=== PATIENT | female | born 2000 | race Hispanic/Latino ===

== ENCOUNTER 2024-06-28 11:46 | Emergency (ER) | payer SELFPAY ==
[2024-06-28 11:52] VITALS: BP 115/77
[2024-06-28 12:36] LABS: Urine Albumin Negative (Neg - Trace); Urine Bilirubin Negative (Negative); Urine Character Slightly Cloudy (Clear); Urine Color Yellow; Urine Glucose Negative (Negative); Urine Ketone Negative (Negative); Urine Leukocyte Negative (Negative); Urine Nitrite Negative (Negative); Urine Occult Blood 1+ (Negative); Urine Specific Gravity 1.015 (<1.030); Urine Urobilinogen Negative (Neg - 1+); Urine pH 6.5 (5.0-9.0)
[2024-06-28 12:45] LABS: HCG, Serum Qualitative Screen Negative
--- NOTE | 2024-06-28 12:47 | ED.GENMED ---
History of Present Illness
<Monique Quintana PA-C - Last Filed: 06/28/24 17:14>
General
Chief Complaint: Abdominal Symptoms
Source: patient and family (Mom at bedside translating)
Exam Limitations: none
Time Seen by Provider: 06/28/24 12:20
Nursing documentation reviewed up to this point in time: agreed with
History of Present Illness
History of Present Illness:
Patient is a 24-year-old female presenting to the emergency department with mom for evaluation of right flank pain. Patient states symptoms started on Thursday evening and seem to come and go in severity. Patient reports pain across her entire low
back although worse on the right side with some radiation into her right pelvis and down her right leg. Patient reports a few episodes of vomiting and chills with severe pain. Patient does report some dysuria and seeing 'small brown stones' in her
urine yesterday with hematuria. Patient was seen in urgent care earlier today and sent to the emergency department for further evaluation.
Patient has not eaten much over the past 2 days but does report feeling hungry. Patient denies any fevers.
Patient just finished her menstrual period on Thursday.
Patient has a history of 2 sections and liposuction last year.
Review of Systems
<Monique Quintana PA-C - Last Filed: 06/28/24 17:14>
Review of Systems
Allergies reviewed?: Yes
All Other Systems: ROS reviewed and negative except as documented in HPI and ROS
Phy Exam
<Monique Quintana PA-C - Last Filed: 06/28/24 17:14>
Physical Exam
Physical Exam:
Vitals: Patient's vital signs are stable
General: Patient is well appearing, no acute distress. Nontoxic-appearing
Skin: Warm and dry, no rashes or lesions
Head: Normocephalic, atraumatic
Eyes: Sclera nonicteric. EOMs intact. No nystagmus.
Throat: Protecting airway
Neck: Normal ROM, no cervical spine tenderness, no meningismus
Cardiac: Regular rate and rhythm, no murmurs.
Pulm: Normal respiratory effort, no wheezes, rales, rhonchi heard on exam.
Abdomen: Abdomen soft. Mild tenderness in lower abdomen without rebound tenderness or guarding. Mild right CVA tenderness. No overlying rash or bruising of bilateral
Extremities: No evidence of cyanosis or edema. Great distal pulses
Neuro: Grossly intact.
Psychiatric: Normal affect..
Course
<Monique Quintana PA-C - Last Filed: 06/28/24 17:14>
Orders/Labs/Results
Orders:
Orders
06/28/24 12:20
Test Result ONCE
06/28/24 12:21
Complete Blood Count/With Diff Urgent
Comprehensive Metabolic Panel Urgent
HCG, Serum Qualitative Screen Urgent
Urinalysis Reflex To Culture Urgent
Date Specimen was Collected: 06/28/24
Time Specimen was Collected: 12:20
Urine Microscopic Reflex Cult Urgent
Urine Culture Urgent
EMRE Source: U
Specimen Description:
Date Specimen was Collected: 06/28/24
Time Specimen was Collected: 12:20
06/28/24 12:43
0.9% Sodium Chloride 1000 ml [Nss] 1,000 ml IV BOLUS
Ketorolac [Toradol] 15 mg IV NOW STA
Ondansetron Injectable [Zofran] 4 mg IV NOW STA
06/28/24 13:04
CT Abd/pel Without Iv Or Oral Urgent
Comment:
Reason For Exam: right flank pain
Abnormal Lab Results
06/28/24
12:21
Glucose 108 H mg/dl
(70-99)
Calcium 11.0 H mg/dl
(8.4-10.2)
AST 48 H U/L
(14-36)
ALT 50 H U/L
(0-35)
Ur Occult Blood Reflex 1+ A
(Negative)
Urine Bacteria (Reflex) Moderate A
(Negative)
06/28/24 12:21
06/28/24 12:21
Vital Signs
Initial and Last Documented VS:
Initial Vital Signs
Temp Pulse Resp BP Pulse Ox
97.8 F 61 19 115/77 100
06/28/24 11:52 06/28/24 11:52 06/28/24 11:52 06/28/24 11:52 06/28/24 11:52
Last Documented Vital Signs
Temp Pulse Resp BP Pulse Ox
97.8 F 51 19 115/65 99
06/28/24 11:52 06/28/24 16:24 06/28/24 11:52 06/28/24 16:24 06/28/24 16:24
lauryn;Mark Birch DO - Last Filed: 06/30/24 15:33>
Orders/Labs/Results
Orders:
Orders
06/28/24 12:20
Test Result ONCE
06/28/24 12:21
Complete Blood Count/With Diff Urgent
Comprehensive Metabolic Panel Urgent
HCG, Serum Qualitative Screen Urgent
Urinalysis Reflex To Culture Urgent
Date Specimen was Collected: 06/28/24
Time Specimen was Collected: 12:20
Urine Microscopic Reflex Cult Urgent
Urine Culture Urgent
EMRE Source: U
Specimen Description:
Date Specimen was Collected: 06/28/24
Time Specimen was Collected: 12:20
06/28/24 12:43
0.9% Sodium Chloride 1000 ml [Nss] 1,000 ml IV BOLUS
Ketorolac [Toradol] 15 mg IV NOW STA
Ondansetron Injectable [Zofran] 4 mg IV NOW STA
06/28/24 13:04
CT Abd/pel Without Iv Or Oral Urgent
Comment:
Reason For Exam: right flank pain
Abnormal Lab Results
06/28/24
12:21
Glucose 108 H mg/dl
(70-99)
Calcium 11.0 H mg/dl
(8.4-10.2)
AST 48 H U/L
(14-36)
ALT 50 H U/L
(0-35)
Ur Occult Blood Reflex 1+ A
(Negative)
Urine Bacteria (Reflex) Moderate A
(Negative)
06/28/24 12:21
06/28/24 12:21
Vital Signs
Initial and Last Documented VS:
Initial Vital Signs
Temp Pulse Resp BP Pulse Ox
97.8 F 61 19 115/77 100
06/28/24 11:52 06/28/24 11:52 06/28/24 11:52 06/28/24 11:52 06/28/24 11:52
Last Documented Vital Signs
Temp Pulse Resp BP Pulse Ox
97.8 F 51 19 115/65 99
06/28/24 11:52 06/28/24 16:24 06/28/24 11:52 06/28/24 16:24 06/28/24 16:24
<Monique Quintana PA-C - Last Filed: 06/28/24 17:14>
MDM/Problems Addressed
Differential Diagnosis Includes:
Not limited to: Kidney stone, UTI, pyelonephritis, muscular strain, appendicitis, ovarian cyst, doubt torsion
MDM/Problems Addressed:
24-year-old female presenting with 3 days of intermittent right flank pain and associated dysuria, hematuria. Pain radiating into right lower abdomen and vagina. Few episodes of vomiting with pain. No known fevers or vaginal discharge/bleeding.
No history of ovarian cysts. Patient did see 'brown stones 'in urine yesterday. Vital stable on arrival, patient is afebrile. Patient is well-appearing, in no apparent distress. She is nontoxic-appearing. Abdomen is soft with mild reproducible
tenderness in right lower and left lower abdomen. No rebound tenderness or guarding. Mild CVA tenderness on right. Exam not consistent with ovarian torsion or PID. History most consistent with likely kidney stone although possibility that
patient has since passed stone. Labs obtained in triage noted. CBC without any abnormalities. No leukocytosis. Chemistry panel does show mild hypercalcemia with a level of 11.0. Mild elevation in AST and ALT. test is negative. Urine
essentially normal without any significant amount of red blood cells noted. No evidence of urinary infection. Did give patient fluids, Toradol. Will obtain noncontrast CT abdomen/pelvis to search for possible kidney stones although it is possible
the study will be normal if recently passed on.
Into reassess patient and she expresses complete resolution of pain following Toradol. She states pain is currently 0/10. CT pending
CT report reviewed. No acute abnormalities noted. There are few small nonobstructing left renal calculi, not likely contributing to patient's pain. Appendix unremarkable. No free fluid noted pelvis.
Workup here essentially normal. Patient is feeling better following Toradol. Did reassess patient and abdomen is soft and nontender in all 4 quadrants. Patient no longer reporting CVA tenderness. Given patient is afebrile with no leukocytosis
doubt acute intra-abdominal infection. No evidence of obstructing kidney stones. Symptoms likely related to recently passed kidney stone. Patient will follow closely with an [facility] clinic. Advised NSAIDs, adequate hydration. Recommended to
have lab values rechecked in a few weeks given hypercalcemia and transaminitis. Return precautions discussed at length with both patient and patient's mom. Patient seen with attending physician
Chronic conditions affecting care:
N/A
Acute Exacerbation and/or Progression of Chronic Illness:
N/A
<Monique Quintana PA-C - Last Filed: 06/28/24 17:14>
*Radiology
Radiology exam reviewed: preliminary read by ED provider and radiology read reviewed
*Pulse Oximetry
Patient hypoxic: no
*EKG
Interpreted by ED Provider?: NA
*Grants Officer Interpretation
Rate: Grants Officer- N/A
*Critical Care Note
Total Time (30-74mins, 75-104mins- exclusive of procedures): Not Applicable
ED Attending Note
<Monique Quintana PA-C - Last Filed: 06/28/24 17:14>
-
Portions of this chart may have been created with voice recognition software.� Occasional wrong word or��sound alike� substitutions may have occurred due to the inherent limitations of voice recognition software.
<Mark Birch DO - Last Filed: 06/30/24 15:33>
ED Attending Note
Patient seen and examined by attending physician: Yes
I performed the substantive portion of visit, reviewed & personally made and approve the management plan that is documented in note by myself or LITTLE.: Yes
ED Attending Note:
I agree with Princess's note
Patient presents with pain in her right flank rating around to her right lower abdomen and vagina. Pain was significant earlier but it is almost gone at this point. No fever or chills.
General: Awake, Alert, Oriented X3. No acute distress.
Vitals: unremarkable
Head: Atraumatic
Eyes: Pupils equal, EOMI
Abd: Soft, No reproducible tenderness to palpation, No pulsatile mass
Neuro: Nonfocal
Skin: Warm, dry, no rash
Extremities: pulses equal b/l, no edema
Patient has no reproducible pain at this time. Suspect kidney stone. Will obtain a CT without contrast. Patient may have already passed the stone in which case we may find nothing acute. My suspicion for appendicitis is extremely low and I would
not pursue this diagnosis if this does not show a kidney stone.
Discharge Plan
Departure
Patient Disposition: Home (Routine Discharge)
Date of Disposition: 06/28/24
Time of Disposition: 16:15
Patient with high blood pressure during this ER visit?: No
Condition: Good
Covid-19: Not Applicable
Discharge Problem:
Acute flank pain
Instructions: Flank Pain (DC), Kidney Stone, Adult ED
Referrals:
[facility]] - Next open appointment
NONE,* [Family Provider] -
Activity Restrictions/Additional Instructions:
RETURN TO THE EMERGENCY DEPARTMENT WITH ANY FEVERS, CHILLS, SEVERE ABDOMINAL PAIN/BACK PAIN, NAUSEA/VOMITING, OR ANY OTHER CONCERNS
-As discussed - take tylenol/motrin for pain. Stay well hydrated
-[facility] for [facility] in a few weeks as your calcium and liver function were elevated.
RETURN TO THE ER WITH ANY CONCERNS
Interventions
Interventions:
*Risk Screen - Suicide Last Done: 06/28/24 12:31
*General Assessment Last Done: 06/28/24 12:31
*Neglect/Abuse Screening Last Done: 06/28/24 12:31
*Nursing Disposition Last Done: 06/28/24 16:24
[facility] Assessment Last Done: 06/28/24 12:31
Discharge Date and Time
Discharge Date/Time: 06/28/24 16:27
Print Language: FAROESE
[2024-06-28 12:48] LABS: ALT (SGPT) 50 U/L (0-35); AST (SGOT) 48 U/L (14-36); Albumin 4.3 g/dl (3.5-5.0); Alkaline Phosphatase 86 U/L (38-126); Blood Urea Nitrogen 11 mg/dl (7-17); Carbon Dioxide 26 mmol/L (22-30); Chloride 104 mmol/L (98-107); Glucose 108 mg/dl (70-99); Sodium 139 mmol/L (135-145); Total Bilirubin 0.5 mg/dl (0.2-1.3); Total Protein 6.8 g/dl (6.3-8.2); eGFR > 60.00
[2024-06-28 12:49] LABS: % Basophils 0.5 % (0-2); % Eosinophils 2.9 % (0-6); % Immature Granulocytes 0.2 % (0-0.5); % Lymphocytes 38.2 % (20.5-51.1); % Monocytes 5.4 % (1.7-9.3); % Neutrophils 52.8 % (42.2-75.2); Absolute Eosinophils 0.2 10^3/uL (0-0.7); Absolute Lymphocytes 2.1 10^3/uL (1.2-3.4); Absolute Monocytes 0.3 10^3/uL (0.1-0.6); Absolute Neutrophils 2.9 10^3/uL (1.4-6.5); Hemoglobin 12.4 g/dL (12.0-16.0); Mean Corp Hgb Conc. 33.5 g/dL (33.0-37.0); Mean Corpuscular Hgb 29.5 pg (27.0-31.0); Mean Corpuscular Volume 87.9 fL (81.0-99.0); Mean Platelet Volume 9.7 fL (7.4-10.4); Nucleated Red Blood Cells % 0 %; Platelet Count 292 10^3/uL (130-400); Red Blood Cell Count 4.21 10^6/uL (4.20-5.40); Red Cell Dist. Width 12.6 % (11.5-14.5); White Blood Cell Count 5.6 10^3/uL (4.8-10.8)
[2024-06-28] MEDS: ZOFRAN 4 MG IV (12:49)
[2024-06-28] MEDS: TORADOL 15 MG IV (12:49)
[2024-06-28 12:50] LABS: Urine Bacteria Moderate (Negative); Urine Red Blood Cell 0-2 /HPF (0-2); Urine White Cell None Seen /HPF (0-5)
[2024-06-28] MEDS: NSS 1000 IV (12:50)
[2024-06-28 16:22] VITALS: BP 115/65
[2024-06-28 16:24] VITALS: BP 115/65
== END 2024-06-28 16:27 | disposition home or self-care (01) ==
LOC: EMR 11:46
PROVIDERS: Emergency Medicine; EMERGENCY PHYSICIAN Emergency Medicine
DX: R10.2 Pelvic and perineal pain (principal); R10.31 Right lower quadrant pain; R11.10 Vomiting, unspecified; M54.50 Low back pain, unspecified; M79.604 Pain in right leg; R68.83 Chills (without fever); N20.0 Calculus of kidney
CPT/HCPCS: 99284; 96374; 96375; 96361; 74176; 80053; 81003; 81015; 84703; 85025; 87086

== ENCOUNTER → 2024-11-10 12:18 | Outpatient (REF) | payer OTHER, SELFPAY ==
[2024-11-10 13:11] LABS: % Basophils 0.4 % (0-2); % Eosinophils 2.4 % (0-6); % Immature Granulocytes 0.2 % (0-0.5); % Lymphocytes 42.1 % (20.5-51.1); % Monocytes 5.6 % (1.7-9.3); % Neutrophils 49.3 % (42.2-75.2); Absolute Eosinophils 0.1 10^3/uL (0-0.7); Absolute Lymphocytes 2.3 10^3/uL (1.2-3.4); Absolute Monocytes 0.3 10^3/uL (0.1-0.6); Absolute Neutrophils 2.7 10^3/uL (1.4-6.5); Hematocrit 40.8 % (37.0-47.0); Hemoglobin 13.4 g/dL (12.0-16.0); Mean Corp Hgb Conc. 32.8 g/dL (33.0-37.0); Mean Corpuscular Hgb 29.3 pg (27.0-31.0); Mean Corpuscular Volume 89.3 fL (81.0-99.0); Mean Platelet Volume 9.9 fL (7.4-10.4); Nucleated Red Blood Cells % 0 %; Platelet Count 312 10^3/uL (130-400); Red Blood Cell Count 4.57 10^6/uL (4.20-5.40); Red Cell Dist. Width 12.5 % (11.5-14.5); White Blood Cell Count 5.5 10^3/uL (4.8-10.8)
[2024-11-10 15:05] LABS: ALT (SGPT) 65 U/L (0-35); AST (SGOT) 48 U/L (14-36); Albumin 4.7 g/dl (3.5-5.0); Alkaline Phosphatase 88 U/L (38-126); Blood Urea Nitrogen 8 mg/dl (7-17); Calcium 10.8 mg/dl (8.4-10.2); Carbon Dioxide 24 mmol/L (22-30); Chloride 105 mmol/L (98-107); Glucose 87 mg/dl (70-99); Potassium 4.4 mmol/L (3.5-5.1); Sodium 137 mmol/L (135-145); Total Bilirubin 0.5 mg/dl (0.2-1.3); Total Protein 7.4 g/dl (6.3-8.2); eGFR > 60.00
[2024-11-10 15:30] LABS: TSH Reflex To Free T4 1.77 uIU/ml (0.47-4.68)
== END ==
LOC: REG 12:18
PROVIDERS: ATTENDING PHYSICIAN Nurse Practitioner Family
DX: N20.0 Calculus of kidney (principal)
CPT/HCPCS: 36415; 80053; 84443; 85025